=== PATIENT | female | born 1955 | race Caucasian/White ===

== ENCOUNTER 2016-08-06 10:45 | Outpatient (CLI) ==
[2015-02-24 15:34] VITALS: BMI 36.8
== END 2016-08-06 10:46 | disposition home or self-care (01) ==
LOC: LAB 10:45
PROVIDERS: ATTEND Internal Medicine Rheumatology
DX: E55.9 Vitamin D deficiency, unspecified (principal)
CPT/HCPCS: 36415; 82306

== ENCOUNTER 2016-08-16 08:51 | Outpatient (CLI) ==
[2015-02-24 15:34] VITALS: BMI 36.8
[2016-08-16 09:46] LABS: HEMATOCRIT 47.5 % (37.0-47.0); HEMOGLOBIN 16.1 g/dl (12.0-16.0); MEAN CORPUSCULAR HEMOGLOBIN 31.7 pg (27.0-31.0); MEAN CORPUSCULAR HGB CONC 33.9 (31.8-35.4); MEAN CORPUSCULAR VOLUME 93.5 fl (81.0-99.0); RED BLOOD COUNT 5.08 10^6/ul (4.20-5.40); WHITE BLOOD COUNT 5.46 K/ul (4.6-10.2)
[2016-08-16 10:32] LABS: ALBUMIN 3.3 g/dL (3.4-5.0); ANION GAP 10.8; BILIRUBIN,DIRECT 0.28 mg/dL (0.00-0.30); BILIRUBIN,TOTAL 0.66 mg/dL (0.00-1.20); BUN/CREATININE RATIO 23.18; CALCIUM 8.7 mg/dL (8.2-10.2); CREATININE 0.69 mg/dL (0.60-1.30); FERRITIN 110.95 ng/mL (4.63-204.00); FOLATE 9.8 ng/mL (3.1-20.5); POTASSIUM 3.8 mmol/L (3.5-5.10); TOTAL PROTEIN 7.3 g/dL (5.8-8.1)
[2016-08-16 10:48] LABS: GLUCOSE 30 MINUTE 139 mg/dL (70-121)
[2016-08-16 10:48] LABS: GLUCOSE,FASTING 88 mg/dL (70-121)
[2016-08-16 10:58] LABS: GTT FASTING URINE NEGATIVE (NEGATIVE)
[2016-08-16 10:58] LABS: GLUCOSE 30 MINUTE URINE NEGATIVE (NEGATIVE)
[2016-08-16 12:03] LABS: GLUCOSE 2 HR URINE NEGATIVE (NEGATIVE)
[2016-08-19 10:34] LABS: ANTI-NUCLEAR ANTIBODY SCREEN Negative (Negative)
[2016-08-21 07:45] LABS: IMMUNOGLOBULIN M, QN, SERUM 170 mg/dL (26-217)
== END 2016-08-16 08:52 | disposition home or self-care (01) ==
LOC: LAB 08:51
PROVIDERS: ATTEND Internal Medicine Rheumatology
DX: Z51.81 Encounter for therapeutic drug level monitoring (principal); R53.83 Other fatigue; M19.90 Unspecified osteoarthritis, unspecified site; E53.8 Deficiency of other specified B group vitamins; D64.9 Anemia, unspecified; Z79.899 Other long term (current) drug therapy
CPT/HCPCS: 36415; 80048; 80076; 82607; 82728; 82746; 82947; 82951; 82952; 85027; 86038; 86320; 86325

== ENCOUNTER 2016-10-23 16:03 | Outpatient (CLI) | payer OTHER ==
[2015-02-24 15:34] VITALS: BMI 36.8
--- NOTE | 2016-10-23 16:47 | DI ---
EXAM: Two views of the chest. History: Left pleuritic chest pain with inflammation. Comparison: Chest radiograph 07/23/2010 Findings: Heart is borderline enlarged. No focal consolidation. No appreciable pleural fluid and no pneumothorax. No acute osseous abnormalities. Impression: No acute cardiopulmonary process.
--- NOTE | 2016-10-23 16:47 | DI ---
EXAM: Radiographs, left rib HISTORY: Left rib pain. COMPARISON: Chest radiograph 07/23/2010. TECHNIQUE: Three views. FINDINGS/IMPRESSION: No left rib fracture identified. Left lung is clear without pleural effusion or pneumothorax.
== END 2016-10-23 16:04 | disposition home or self-care (01) ==
LOC: RAD 16:03
PROVIDERS: ATTEND Internal Medicine
DX: R09.1 Pleurisy (principal); J45.909 Unspecified asthma, uncomplicated; R07.81 Pleurodynia

== ENCOUNTER 2016-11-29 11:05 | Outpatient (CLI) ==
[2015-02-24 15:34] VITALS: BMI 36.8
[2016-11-29 11:29] LABS: HEMATOCRIT 46.4 % (37.0-47.0); HEMOGLOBIN 15.6 g/dl (12.0-16.0); MEAN CORPUSCULAR HEMOGLOBIN 31.1 pg (27.0-31.0); MEAN CORPUSCULAR HGB CONC 33.6 (31.8-35.4); MEAN CORPUSCULAR VOLUME 92.4 fl (81.0-99.0); RED BLOOD COUNT 5.02 10^6/ul (4.20-5.40); WHITE BLOOD COUNT 5.96 K/ul (4.6-10.2)
[2016-11-29 11:48] LABS: ALBUMIN 3.4 g/dL (3.4-5.0); ANION GAP 13.2; BILIRUBIN,DIRECT 0.16 mg/dL (0.00-0.30); BILIRUBIN,TOTAL 0.38 mg/dL (0.00-1.20); CALCIUM 8.8 mg/dL (8.2-10.2); CREATININE 0.75 mg/dL (0.60-1.30); POTASSIUM 4.2 mmol/L (3.5-5.10); TOTAL PROTEIN 7.1 g/dL (5.8-8.1)
== END 2016-11-29 11:06 ==
LOC: LAB 11:05
PROVIDERS: ATTEND Internal Medicine Rheumatology
DX: Z51.81 Encounter for therapeutic drug level monitoring (principal); Z79.899 Other long term (current) drug therapy
CPT/HCPCS: 36415; 80048; 80076; 85025; 85027

== ENCOUNTER 2016-12-04 09:34 | Outpatient (CLI) ==
[2015-02-24 15:34] VITALS: BMI 36.8
--- NOTE | 2016-12-04 10:36 | MAMMO ---
EXAM: Digital screening mammogram HISTORY: Screening COMPARISON: 10/05/2013 FINDINGS: Digital MLO and CC views of the right and left breast were performed. There are scatter ed fibroglandular densities. There is no evidence for mass, asymmetry, distortion, or suspicious ca lcifications in either breast. IMPRESSION: 1. No evidence of malignancy in the right or left breast. 2. Annual screening mammogram is recommended in one year. BIRADS category 1, negative examination
== END 2016-12-04 09:35 | disposition home or self-care (01) ==
LOC: RAD 09:34
PROVIDERS: ATTEND Specialist
DX: Z12.31 Encounter for screening mammogram for malignant neoplasm of breast (principal)

== ENCOUNTER 2017-03-04 11:43 | Outpatient (CLI) | payer OTHER ==
[2015-02-24 15:34] VITALS: BMI 36.8
[2017-03-04 12:07] LABS: BASOPHILS # (AUTO) 0.1 K/uL (0-0.2); BASOPHILS % (AUTO) 1.2 % (0.0-3.0); EOSINOPHILS # (AUTO) 0.4 K/ul (0.0-0.7); EOSINOPHILS % (AUTO) 3.5 % (0.0-7.0); HEMATOCRIT 47.9 % (37.0-47.0); HEMOGLOBIN 16.5 g/dl (12.0-16.0); IMMATURE GRANULOCYTE % (AUTO) 0.9 % (0.0-5.0); LYMPHOCYTES # (AUTO) 2.8 K/uL (0.60-3.4); LYMPHOCYTES % (AUTO) 23.6 (10.0-50.0); MEAN CORPUSCULAR HEMOGLOBIN 31.7 pg (27.0-31.0); MEAN CORPUSCULAR HGB CONC 34.4 (31.8-35.4); MEAN CORPUSCULAR VOLUME 91.9 fl (81.0-99.0); MONOCYTES # (AUTO) 1.3 K/uL (0.4-2.0); NEUTROPHILS # (AUTO) 7.1 K/ul (2.0-6.9); NEUTROPHILS % (AUTO) 59.8; PLATELET COUNT 371 10^3/uL (140-440); RED BLOOD COUNT 5.21 10^6/ul (4.20-5.40); WHITE BLOOD COUNT 11.86 K/ul (4.6-10.2)
[2017-03-04 12:29] LABS: ALBUMIN 3.3 g/dL (3.4-5.0); ALBUMIN/GLOBULIN RATIO 0.73; ANION GAP 11.9; BILIRUBIN,TOTAL 0.38 mg/dL (0.00-1.20); BUN/CREATININE RATIO 14.28; CALCIUM 9.6 mg/dL (8.2-10.2); CREATININE 0.77 mg/dL (0.60-1.30); POTASSIUM 3.9 mmol/L (3.5-5.10); TOTAL PROTEIN 7.8 g/dL (5.8-8.1)
--- NOTE | 2017-03-04 13:12 | CT ---
EXAM: CT soft tissue neck with contrast. HISTORY: Left jaw swelling. COMPARISON: None available. TECHNIQUE: Multiple axial images of the neck were obtained following intravenous administration of 75 mL of Omnipaque 350, low osmolar. Images were reformatted in the sagittal and coronal plane. FINDINGS: No intracranial or intraorbital abnormality identified. Paranasal sinuses and mastoid ai r cells are grossly clear. Degenerative changes present in the spine. No acute osseous abnormality identified. The parotid and submandibular glands are unremarkable. There are numerous lymph nodes present throu ghout the neck with the largest lymph node on the left at level to a measuring 1.2 cm short axis on axial image 44. 1.1 cm right cervical lymph node present at the same level also on axial image 44. Radiopaque marker was placed in the left submandibular region, and there are several small left sub mandibular lymph nodes present in this area. There is also mild subcutaneous edema in this region. No drainable fluid collection identified. There appears to be diffuse pharyngeal mucosal enhancement to the level of the larynx. No localized mass identified. No drainable fluid collection is identified. Airway is normal in caliber. Thyro id gland is normal in size. Vascular structures in the neck are patent. There is consolidation in the medial aspect of the right lung apex which is somewhat ill-defined. IMPRESSION: 1. Cervical lymphadenopathy which is of uncertain etiology. 2. Mild subcutaneous edema in the left submandibular region could represent cellulitis. 3. Nonspecific pharyngeal mucosal enhancement. Correlation with direct inspection should be consid ered. 4. Medial right apical consolidation. Follow-up chest CT in 4-6 weeks recommended for reassessment .
--- NOTE | 2017-03-04 14:36 | CT ---
EXAM: CT chest without contrast. HISTORY: Right apical consolidation. COMPARISON: Neck CT earlier the same day. TECHNIQUE: Multiple axial images of the chest were obtained without intravenous contrast. Images w ere reformatted in the sagittal and coronal planes. FINDINGS: Calcified noncalcified mediastinal lymph nodes present. Nonenlarged mediastinal lymph no halie suggested. Evaluation for hilar lymphadenopathy is limited by lack of intravenous contrast. Heart size is normal. Atherosclerotic calcifications present in the coronary arteries. No pericard ial effusion identified. There is ill-defined consolidation in the medial aspect of the right apex best seen on axial images 10 through 17. Additional subpleural linear opacities are seen in both glynn ngs. Calcified granulomatous changes are present. No pleural effusion or pneumothorax identified. Limited images of the upper abdomen suggest fatty infiltration of the liver. No acute osseous abnor mality identified. IMPRESSION: Nonspecific right apical consolidation could be post infectious/inflammatory scarring. Follow-up est CT in 3 months recommended for reassessment.
== END 2017-03-04 11:44 | disposition home or self-care (01) ==
LOC: RAD 11:43
PROVIDERS: ATTEND Internal Medicine
DX: J98.4 Other disorders of lung (principal); R50.9 Fever, unspecified; R68.84 Jaw pain; R22.0 Localized swelling, mass and lump, head
CPT/HCPCS: 36415; 80053; 85025

== ENCOUNTER 2017-03-28 12:16 | Outpatient (CLI) ==
[2015-02-24 15:34] VITALS: BMI 36.8
[2017-03-28 13:02] LABS: BASOPHILS # (AUTO) 0.1 K/uL (0-0.2); BASOPHILS % (AUTO) 0.7 % (0.0-3.0); EOSINOPHILS # (AUTO) 0.2 K/ul (0.0-0.7); EOSINOPHILS % (AUTO) 2.5 % (0.0-7.0); HEMATOCRIT 43.7 % (37.0-47.0); HEMOGLOBIN 14.9 g/dl (12.0-16.0); IMMATURE GRANULOCYTE % (AUTO) 0.5 % (0.0-5.0); LYMPHOCYTES # (AUTO) 2.8 K/uL (0.60-3.4); LYMPHOCYTES % (AUTO) 32.6 (10.0-50.0); MEAN CORPUSCULAR HGB CONC 34.1 (31.8-35.4); MONOCYTES # (AUTO) 0.8 K/uL (0.4-2.0); MONOCYTES % (AUTO) 9.5 (0-10); NEUTROPHILS # (AUTO) 4.6 K/ul (2.0-6.9); NEUTROPHILS % (AUTO) 54.2; PLATELET COUNT 351 10^3/uL (140-440); RED BLOOD COUNT 4.65 10^6/ul (4.20-5.40); WHITE BLOOD COUNT 8.49 K/ul (4.6-10.2)
[2017-03-28 13:18] LABS: ALBUMIN 3.1 g/dL (3.4-5.0); ALBUMIN/GLOBULIN RATIO 0.72; ANION GAP 12.5; BILIRUBIN,TOTAL 0.28 mg/dL (0.00-1.20); BUN/CREATININE RATIO 14.86; CALCIUM 9.4 mg/dL (8.2-10.2); CREATININE 0.74 mg/dL (0.60-1.30); POTASSIUM 3.5 mmol/L (3.5-5.10); TOTAL PROTEIN 7.4 g/dL (5.8-8.1)
== END 2017-03-28 12:17 | disposition home or self-care (01) ==
LOC: LAB 12:16
PROVIDERS: ATTEND Internal Medicine
DX: R53.83 Other fatigue (principal); R22.0 Localized swelling, mass and lump, head; R21 Rash and other nonspecific skin eruption; R50.9 Fever, unspecified
CPT/HCPCS: 36415; 80053; 85025; 85597; 85598; 85610; 85613; 85670; 85730; 85732; 86146; 86147; 86617; 86757; 87471; 87798

== ENCOUNTER 2017-06-16 07:41 | Outpatient (CLI) ==
[2015-02-24 15:34] VITALS: BMI 36.8
--- NOTE | 2017-06-16 08:20 | CT ---
EXAM: CT chest without contrast HISTORY: 3-month follow-up right lung nodule COMPARISON: 03/04/2017 TECHNIQUE: CT chest performed without intravenous contrast. Coronal and sagittal reformatted images obtained. FINDINGS: Thoracic inlet appears normal. Heart normal in size. Coronary calcifications. No perica rdial effusion. Aorta normal in caliber. Esophagus unremarkable. Evaluation for lymphadenopathy li mited without contrast. No lymphadenopathy identified. Calcified mediastinal lymph nodes, consistent with old granulomatous disease. Visualized liver decreased attenuation. Patient status post cholecy stectomy. Granulomatous calcification in the spleen. Degenerative change in the spine. Central air way patent. There has been resolution of the right apical consolidation with mild residual curvilinea r scarring and/or subsegmental atelectasis in this region. No airspace consolidation. No pleural ef fusion. No pneumothorax. Granulomatous calcification right lung IMPRESSION: 1. Interval resolution of the right apical consolidation with mild residual curvilinear scarring and/ or subsegmental atelectasis in this region. 2. No acute cardiopulmonary process. 3. Coronary calcifications. 4. Hepatic steatosis.
== END 2017-06-16 07:42 | disposition home or self-care (01) ==
LOC: RAD 07:41
PROVIDERS: ATTEND Internal Medicine
DX: R91.1 Solitary pulmonary nodule (principal)

== ENCOUNTER 2017-09-30 07:06 | Day surgery (SDC) | payer OTHER ==
[2015-02-24 15:34] VITALS: BMI 36.8
[2017-09-30] MEDS ORDERED: LIDOCAINE 1% 20 ML MDV ID STA (07:35)
[2017-09-30] MEDS ORDERED: VERSED ONE (09:15)
[2017-09-30] MEDS ORDERED: DIPRIVAN 20 ML VIAL IVP ONE (09:15)
[2017-09-30] MEDS ORDERED: SUBLIMAZE ONE (09:15)
[2017-10-01 12:23] VITALS: BP 110/64; TEMP 98.5
--- NOTE | 2017-10-01 13:40 | OP ---
INDICATIONS FOR PROCEDURE: 62 year old female presents for endoscopy and colonoscopy. She is having intermittent dysphagia to solids. She also is having some bright red blood from rectum. She has a family history of colon cancer involving her mother at age 62. MEDICATIONS: SEE ANESTHESIA NOTES. PROCEDURE: ENDOSCOPY, ESOPHAGEAL BIOPSY, FINNISH DILATATION COLONOSCOPY, SNARE POLYPECTOMY REPORT: The risks, benefits, alternatives and limitations were discussed in detail with the patient. Informed consent was obtained. After adequate sedation was achieved, the video endoscope was introduced in the posterior pharynx and esophagus under direct vision and easily advanced down to the second portion of the duodenum. I then slowly withdrew. The duodenal mucosa appeared unremarkable as did the duodenal bulb. The antrum body is relatively unremarkable. The scope was retroflexed to look at the cardia and fundus which was unremarkable. The scope was anteflexed and withdrawn back through the esophagus. At the GE junction there was a small break in the mucosa consistent with grade A acid reflux. This was biopsied for histological review. At the distal esophagus there was also circumferential stricture causing mild lumen narrowing. There was remaining esophagus was unremarkable. I advised the scope back down the gastric lumen I placed the guidewire and withdrew the scope. Over the guidewire I easily advance 54 [place] Dilators. The patient tolerated the procedure well with stable vital signs and pulse oximetry throughout. The patient's bed was turned. A digital rectal exam revealed good tone, no masses. The colonoscope was introduced into the rectum and advanced under direct visual guidance to the cecum. The cecum was identified by the appendiceal orifice and IC valve. I then slowly withdrew the scope in circumferential manner and examined the mucosa quite carefully. I looked on the proximal and distal sides of fold and flexures as best as possible. I was able to retroflex the scope in the right colon and the left colon to increase visualization. In the proximal transverse colon there is small 4-5mm sessile polyp that I destroyed using snare technique. In the distal descending there was small 5mm polyp that was removed and retrieved. In the proximal rectum there was a poly that was removed by snare technique. On retroflex view of the anal canal there was small non engorged hemorrhoidal veins. No other abnormalities were noted. The prep was good. The withdraw time is 10 minutes and 32 seconds. The patient tolerated the procedure well with stable vital signs and pulse oximetry throughout. IMPRESSION: 1. 1+ reflux esophagitis 2. Distal esophageal stricture dilated as above 3. 3 small polyps removed or destroyed as above 4. Small internal hemorrhoids RECOMMENDATIONS: 1. Strict reflux precautions and I will go over these with her especially weight loss 2. Continue daily PPI therapy and I suggest her H2 zaid ever evening. 3. Await esophageal biopsy to confirm benign nature 4. Await colon polyp pathology and if there is adenomatous change I recommend repeat colonoscopy examination again in 3 years otherwise screening again in 5 years. 5. High fiber diet, suggest a fiber supplementation 6. We will see her back in the office as needed CC: Dr. Portillo ADDENDUM: I talked to Emilie Robertson after endoscopy. She has not been taking anything for reflux. She used to take Prevacid and over the counter H2 zaid but she hasn' t been taking it lately. I suggested that she get back on her Prevacid QAM and use this for next month or two while she is initiating reflux precautions then she can use as needed. MTDD
== END 2017-09-30 10:45 | disposition home or self-care (01) ==
LOC: SURG 07:06
PROVIDERS: ATTEND Internal Medicine Gastroenterology
DX: K62.5 Hemorrhage of anus and rectum (principal); R13.19 Other dysphagia; K63.5 Polyp of colon; K21.0 Gastro-esophageal reflux disease with esophagitis; K22.2 Esophageal obstruction; K64.8 Other hemorrhoids; Z80.0 Family history of malignant neoplasm of digestive organs

== ENCOUNTER 2017-12-24 08:48 | Outpatient (CLI) | payer OTHER ==
[2015-02-24 15:34] VITALS: BMI 36.8
--- NOTE | 2017-12-24 10:50 | MAMMO ---
EXAM: Bilateral digital diagnostic mammogram (2-D and 3-D) History: Right breast palpable abnormality. Comparison: Bilateral mammogram 12/04/2016 Findings: MLO and CC views of bilateral breasts demonstrate scattered fibroglandular breast parenchy ma. Focal asymmetry within the upper-outer quadrant of the right breast. There are no suspicious ca lcifications and no architectural distortions Impression: Indeterminate focal asymmetry within the upper-outer quadrant of the right breast anteri or depth. Recommend further evaluation with ultrasound. BIRADS 0
--- NOTE | 2017-12-24 10:52 | US ---
EXAM: Limited right breast ultrasound. History: Right breast palpable abnormality. Comparison: Bilateral mammogram 12/24/2017 Technique: Multiple sonographic images through the right breast were obtained. Color duplex Doppler was used to interrogate vascular flow. Findings: At 9 o'clock just beneath the skin within the area of concern of the right breast 6 cm fro m nipple there is a ill-defined 0.9 cm mixed echogenic lesion. No other abnormalities are seen. Impression: Ill-defined mixed echogenic lesion just beneath the skin of the right breast is probably benign with differential diagnosis including focal mastitis, hematoma or fat necrosis. Recommend 6- month follow-up mammogram and ultrasound to document stability. BIRADS 3
== END 2017-12-24 08:49 | disposition home or self-care (01) ==
LOC: RAD 08:48
PROVIDERS: ATTEND Internal Medicine
DX: N63.13 Unspecified lump in the right breast, lower outer quadrant (principal)

== ENCOUNTER 2018-01-15 07:19 | Outpatient (CLI) | payer OTHER ==
[2015-02-24 15:34] VITALS: BMI 36.8
== END 2018-01-15 07:20 | disposition home or self-care (01) ==
LOC: LAB 07:19
PROVIDERS: ATTEND Dermatology
DX: L40.0 Psoriasis vulgaris (principal); Z01.89 Encounter for other specified special examinations
CPT/HCPCS: 36415; 80053; 85027; 87340; 87389; 87522

== ENCOUNTER 2018-02-18 12:24 | Outpatient (CLI) ==
[2015-02-24 15:34] VITALS: BMI 36.8
--- NOTE | 2018-02-18 13:58 | US ---
EXAM: Bilateral carotid artery Doppler. History: Dizziness. Comparison: Carotid Doppler 04/25/2015. Technique: Multiple sonographic images through the bilateral internal carotid arteries were obtained . Color duplex Doppler was used to interrogate vascular flow. Findings: Known occlusion of the left internal carotid artery. The right ICA peak systolic velocity is upper limits of normal at 1.3 meters per second. The right I CA/cca PSV ratio is normal at 1.3. The right vertebral artery is patent and demonstrates antegrade f low. Romero scale images demonstrate mild plaque buildup within the right internal carotid artery. Impression: 1. Stable known occlusion of the left internal carotid artery. 2. No significant hemodynamic stenosis of the right internal carotid artery.
== END 2018-02-18 12:25 | disposition home or self-care (01) ==
LOC: RAD 12:24
PROVIDERS: ATTEND Internal Medicine
DX: R42 Dizziness and giddiness (principal)

== ENCOUNTER 2018-07-16 08:41 | Outpatient (CLI) ==
[2015-02-24 15:34] VITALS: BMI 36.8
--- NOTE | 2018-07-16 09:41 | CT ---
EXAM: CT of the sinuses without contrast History: Facial pain. Technique: Multiplanar CT images through the sinuses were obtained without the administration of IV contrast Findings: Orbits are intact. The visualized intracranial contents demonstrate no acute findings. 1.5 cm left jugulodigastric lymph node 1.3 cm right jugulodigastric lymph node. No acute fracture or dislocation. Mastoid air cells are clear. Paranasal sinuses are clear. Nasal septum is undulating but bowed more to the left. Bilateral ostiomeatal units are not occluded. Mild to moderate degenerative changes of the bilateral temporal mandibular joints. Impression: 1. Clear paranasal sinuses. 2. No acute fractures. 3. Mildly enlarged nonspecific bilateral neck lymph nodes. Follow-up recommended. 4. Degenerative changes of the bilateral temporomandibular joints
== END 2018-07-16 08:42 | disposition home or self-care (01) ==
LOC: RAD 08:41
PROVIDERS: ATTEND Internal Medicine
DX: J32.9 Chronic sinusitis, unspecified (principal)

== ENCOUNTER 2018-08-12 10:22 | Outpatient (CLI) ==
[2015-02-24 15:34] VITALS: BMI 36.8
--- NOTE | 2018-08-12 11:27 | MAMMO ---
EXAM: Right digital diagnostic mammogram (2-D and 3-D) History: Follow-up right breast mass. Comparison: Bilateral mammogram 12/24/2017 Findings: Spot compression views of the right breast in the MLO and CC projections demonstrate no ab normalities. Right breast density is scattered. Tomosynthesis was performed. Impression: Benign right breast mammogram. Recommend return to routine screening mammography schedul e. BIRADS 2, benign
--- NOTE | 2018-08-12 11:27 | US ---
EXAM: Right breast ultrasound. History: Right breast mass. Comparison: Right breast ultrasound 12/24/2017 Technique: Multiple sonographic images through the right breast were obtained. Color duplex Doppler was used to interrogate vascular flow. Findings: No masses, cysts or fluid collections identified. Impression: No sonographic abnormalities. Recommend return to routine screening mammography schedul e. BIRADS 2, benign
== END 2018-08-12 10:23 | disposition home or self-care (01) ==
LOC: RAD 10:22
PROVIDERS: ATTEND Internal Medicine
DX: N63.11 Unspecified lump in the right breast, upper outer quadrant (principal)

== ENCOUNTER 2018-09-17 06:35 | Outpatient (CLI) ==
[2015-02-24 15:34] VITALS: BMI 36.8
--- NOTE | 2018-09-18 08:32 | ECHO2D ---
Date of Exam: 09/17/18 Ordering Physician: DR. SANJEEV REHMAN Room #: OP Reason for Echo: SOB, CHEST PAIN, COPD M-Mode Normal Adult Results LV Dimensions Normal Adult Results AoV Opening excursions >1.6 >1.6 LVEDD-base- 3.5-5.8 4.4 Ao root dimensions 2.0-3.7 3.2 LVESD-base- 3.1-4.6 L. Atrium dimensions 1.9-3.8 2.8 Post. Wall thickness 0.8-1.1 1.2 IV septum (thickness) 0.7-1.2 1.2 Post. Wall excursion 0.72-1.3 NORMAL Septal motion NORMAL Systolic motion R. Ventricular cavity 1.5-2.0 3.5 LVEF 60% 54% Paradoxical septal wall motion NORMAL 2-D : 2-D M Mode Echocardiogram was performed using apical four chamber and left parasternal long and short axis views. Mitral, tricuspid and aortic valves appear to be normal. Contractility of the left ventricle seems to be normal, so is the cavity size. Left atrial cavity size and aortic root appear to be normal. There is no pericardial effusion. There is no thrombus noted in the left ventricular or left aortic cavity. No mitral valve prolapse noted. M-MODE: MV: NORMAL AV: NORMAL TV: NORMAL PV: CHAMBER SIZE: ENLARGED RIGHT VENTRICLE CAVITY WALL MOTION: NORMAL PERICARDIUM: NORMAL INTERPRETATION: 1. BORDERLINE LEFT VENTRICULAR HYPERTROPHY 2. ENLARGED RIGHT VENTRICLE CAVITY 3. NORMAL LEFT VENTRICULAR CONTRACTILITY 4. NORMAL VALVES MTDD
== END 2018-09-17 06:36 | disposition home or self-care (01) ==
LOC: CAR 06:35
PROVIDERS: ATTEND Internal Medicine
DX: R06.02 Shortness of breath (principal); R07.9 Chest pain, unspecified
CPT/HCPCS: 93005; 93010

== ENCOUNTER 2018-09-18 06:41 | Outpatient (CLI) ==
[2015-02-24 15:34] VITALS: BMI 36.8
--- NOTE | 2018-09-18 08:39 | STRESSMOD ---
Date of Test: 09/18/18 Ordering Physician: DR. SANJEEV REHMAN Occupation: RETIRED Reason for Exam: CHEST PAIN, SOB Smoking History: QUIT 10 YRS AGO Height: 57" Weight: 173 LBS Current Medications: REQUIP, LEXAPRO, PLAVIX, CYMBALTA, VENTOLIN, ASA Resting EKG: SINUS RHYTHM, NON SPECIFIC ST T WAVE CHANGES Target Heart Rate: 131/155 S-T SEGMENT STAGE MPH/GRADE HEART RATE BPM BLOOD PRESSURE mmhg RHYTHM +/- ELEVATION DEPRESSION SYMPTOMS At Rest 80 BPM 130/72 MMHG SR X NONE 1 1.7/0% 110 BPM 152/80 MMHG SR X NONE 2 1.7/5% 120 BPM 148/80 MMHG SR X NONE 3 1.7/10% 4 2.5/12% 5 3.4/14% Immediately After 130 BPM SR X SHORT OF AIR Minutes Post Exercise 4:00 88 BPM 122/80 MMHG SR X NONE Minutes Post Exercise DURATION OF EXERCISE: 8:01 MAXIMUM HEART RATE REACHED: 130 BPM REASON FOR TERMINATION: SHORT OF AIR 95% OXYGEN SATURATION WITH EXERCISE ON ROOM AIR METS 4.6 INTERPRETATION: 1. NO EVIDENCE OF ISCHEMIA BY ST-T WAVE 2. NO CHEST PAIN OR DISCOMFORT 3. NO ARRHYTHMIAS 4. BLOOD PRESSURE RESPONSE ACCEPTABLE NORMAL LEFT VENTRICULAR CONTRACTILITY--RESTING AND POST EXERCISE MTDD
--- NOTE | 2018-09-18 08:52 | ECHOSTRESS ---
Date of Exam: 09/18/18 Ordering Physician: DR. SANJEEV REHMAN Reason for Echo: CHEST PAIN, SOB, STRESS TEST--NO ISCHEMIA M-Mode Normal Adult Results LV Dimensions Normal Adult Results AoV Opening excursions >1.6 LVEDD-base- 3.5-5.8 Ao root dimensions 2.0-3.7 LVESD-base- 3.1-4.6 L. Atrium dimensions 1.9-3.8 Post. Wall thickness 0.8-1.1 IV septum (thickness) 0.7-1.2 Post. Wall excursion 0.72-1.3 Septal motion Systolic motion R. Ventricular cavity 1.5-2.0 LVEF 60% Paradoxical septal wall motion 2-D: NORMAL LEFT VENTRICULAR CONTRACTILITY--RESTING AND POST EXERCISE M-MODE: MV: AV: TV: PV: CHAMBER SIZE: WALL MOTION: NORMAL LEFT VENTRICULAR CONTRACTILITY--RESTING AND POST EXERCISE PERICARDIUM: INTERPRETATION: 1. NORMAL LEFT VENTRICULAR CONTRACTILITY--RESTING AND POST EXERCISE MTDD
== END 2018-09-18 06:42 | disposition home or self-care (01) ==
LOC: CAR 06:41
PROVIDERS: ATTEND Internal Medicine
DX: R06.02 Shortness of breath (principal); R07.9 Chest pain, unspecified

== ENCOUNTER 2019-03-05 07:23 | Outpatient (CLI) ==
[2015-02-24 15:34] VITALS: BMI 36.8
--- NOTE | 2019-03-05 10:26 | CT ---
EXAM: CT of the abdomen pelvis with and without contrast History: Follow-up. Presacral lymph node. Comparison: None available. Technique: Multiplanar CT images through the abdomen pelvis were obtained with and without the admin istration of IV contrast Findings: Lung bases are clear. No acute osseous abnormalities. Bilateral nephrolithiasis measuring 3 mm in the right kidney and 52 mm in the left kidney. No hydron ephrosis. No ureteral calculi. 1 cm simple cyst within the right kidney. No left renal masses. Th e liver is fatty. Status post cholecystectomy. Spleen is unremarkable. Pancreas is within normal l imits. Adrenal glands are unremarkable. No bowel obstruction. No bladder wall thickening. Status post hysterectomy. No perirectal inflammation. No free air and no ascites. The appendix is normal. No inflammatory stranding. 1 cm soft tissue nodule seen anterior to the sacrum. This nodule may c ontain small foci of fat. No pathologically enlarged pelvic or abdominal lymph nodes. Impression: 1. No acute intra-abdominal or pelvic process. 2. Hepatic steatosis. 3. No pathologically enlarged lymph nodes. 4. 1 cm indeterminate soft tissue nodule seen anterior to the sacrum which may contain foci of fat. This may represent a myelolipoma. An MRI of the pelvis can be obtained for further evaluation or at least a 6 -12-month follow-up CT. 5. Nonobstructing bilateral nephrolithiasis. 6. Small simple right renal cyst
== END 2019-03-05 07:24 | disposition home or self-care (01) ==
LOC: RAD 07:23
PROVIDERS: ATTEND Internal Medicine
DX: R59.9 Enlarged lymph nodes, unspecified (principal)
CPT/HCPCS: 36415; 82565